=== PATIENT | male | born 1965 | race Caucasian/White ===

== ENCOUNTER 2017-08-31 12:07 | Outpatient (CLI) | payer OTHER | END 2017-08-31 12:08 | disposition critical access hospital (66) | LOC: EMS 12:07 | PROVIDERS: ATTEND Surgery | DX: R53.1 Weakness (principal) | CPT/HCPCS: A0425; A0427 ==

== ENCOUNTER 2017-08-31 12:27 | Inpatient (IN) | payer OTHER ==
[2017-08-31 13:27] LABS: BASOPHILS % (AUTO) 0.8 %; EOSINOPHILS % (AUTO) 0.2 %; HGB - HEMOGLOBIN 14.7 g/dL (14.0-18.0); LYMPHOCYTES # (AUTO) 1.7 10^3/uL (1.5-3.5); LYMPHOCYTES % (AUTO) 42.9 %; MEAN CORPUSCULAR HGB CONC 35.2 g/dL (32.0-36.0); MEAN CORPUSCULAR VOLUME 85.1 fL (80.0-94.0); MONOCYTES # (AUTO) 0.3 10^3/uL (0.0-1.0); MONOCYTES % (AUTO) 6.5 %; NEUTROPHILS # (AUTO) 1.9 10^3/uL (1.5-6.6); NEUTROPHILS % (AUTO) 49.6 %; PLT - PLATELET COUNT 227 10^3/uL (130-450); RED BLOOD COUNT 4.91 10^6/uL (4.70-6.10); RED CELL DISTRIBUTION WIDTH 13.1 % (12.0-15.0); WHITE BLOOD COUNT 3.9 x10^3/uL (4.8-10.8)
[2017-08-31 13:39] LABS: ALBUMIN 3.7 g/dL (3.2-5.5); BILIRUBIN,TOTAL 1.1 mg/dL (0.2-1.0); CALCIUM 9.2 mg/dL (8.5-10.3); CREATININE 0.7 mg/dL (0.6-1.2); TOTAL PROTEIN 7.3 g/dL (6.7-8.2)
--- NOTE | 2017-08-31 13:47 | ED Physician Documentation ---
PD HPI FOCAL NEURO - Stated complaint Stated Complaint: POSS STROKE - Chief complaint Chief Complaint: Neuro - History obtained from History obtained from: Patient, EMS - History of Present Illness Timing - onset: Enter time (1999), Last night Timing - duration: Hours (14) Timing - details: Abrupt onset, Still present Severity of deficit: Severe Weakness: Face, Arm, Hand, Leg, Foot, Right Associated symptoms: Headache. No: Seizure, Syncope, Fall, Head injury, Chest pain, Neck pain, Back pain Contributing factors: negative: Anticoagulated, Vascular dz Baseline status: positive: A&OX3, ambulatory, indep Similar symptoms before: Has not had sx before Recently seen: Not recently seen - Additional information Additional information: 52-year-old male was well this past week and at approximately 1999 last night developed acute right-sided Facial numbness and weakness followed by weakness of the right upper and lower extremity. He was not able to get up off of the floor and slipped on the floor. When he awoke in the morning he continued to have symptoms and it took him about 4 hours to get to his phone. Review of Systems Constitutional: denies: Fever, Chills, Myalgias Eyes: reports: Other (There is now some trouble with the vision). denies: Loss of vision Ears: denies: Ear pain Nose: denies: Congestion Throat: denies: Sore throat Respiratory: denies: Cough GI: denies: Abdominal Pain, Nausea, Vomiting : denies: Dysuria, Frequency Skin: denies: Rash Musculoskeletal: denies: Neck pain, Back pain, Extremity pain Neurologic: reports: Focal weakness, Numbness, Headache. denies: Generalized weakness, Head injury, LOC Psychiatric: denies: Depressed PD PAST MEDICAL HISTORY - Past Medical History Past Medical History: Yes Cardiovascular: CT Endocrine/Autoimmune: Type 2 diabetes Other Past Medical History: chewing tobacco. - Past Surgical History Past Surgical History: No - Present Medications Home Medications: Ambulatory Orders Medication Instructions Recorded Confirmed Clopidogrel [Plavix] 75 mg PO ONCE 08/31/17 08/31/17 metFORMIN [Glucophage] 500 mg PO ONCE 08/31/17 08/31/17 - Allergies Allergies/Adverse Reactions: Allergies Allergy/AdvReac Type Severity Reaction Status Date / Time No Known Drug Allergies Allergy Verified 08/31/17 12:32 - Social History Does the pt smoke?: No Smoking Status: Never smoker Does the pt drink ETOH?: No Does the pt have substance abuse?: No - Immunizations Immunizations are current?: Yes - POLST Patient has POLST: No PD ED PE NORMAL - Vitals Vital signs reviewed: Yes (normal ) - General General: Alert and oriented X 3, No acute distress, Well developed/nourished - HEENT HEENT: Atraumatic, PERRL, Other (The left eye does not move laterally. ) - Neck Neck: Supple, no meningeal sign, No bony TTP, No bruit - Cardiac Cardiac: RRR, No murmur - Respiratory Respiratory: No respiratory distress, Clear bilaterally - Abdomen Abdomen: Soft, Non tender - Back Back: No CVA TTP, No spinal TTP - Derm Derm: Normal color, Warm and dry, No rash - Extremities Extremities: No deformity, No edema - Neuro Neuro: No motor deficit, No sensory deficit Eye Opening: Spontaneous Motor: Obeys Commands Verbal: Oriented GCS Score: 15 - Psych Psych: Normal mood, Normal affect NIHSS - Time Time: 13:45 - Level of Consciousness Level of consciousness: (0) Alert, Keenly responsive LOC Questions: (0) Answers both Q's correct LOC Commands: (0) Performs both correctly - Gaze Best Gaze: (2) Forced deviation - Visual Visual: (1) Partial hemianopia - Facial Palsy Facial Palsy: (2) Partial paralysis - Motor Arms (both separate) Motor Arm (right): (4) No movement Motor Arm (left): (0) No drift - Motor Legs (both separate) Motor Leg (right): (4) No movement Motor Leg (left): (0) No drift - Limb Ataxia Limb Ataxia: (2) Present in 2 limbs - Sensory Sensory: (1) Kilr-ul-pqpiraso loss - Best Language Best Language: (0) No aphasia - Dysarthria Dysarthria: (1) [id number]-lgwqxlmn dysarthria - Extinction and Inattention (formally neg Extinction and inattention: (0) No abnormality - Total Score/Results Total Score/Result: 17 Results - Vitals Vitals: Vital Signs - 24 hr 08/31/17 08/31/17 08/31/17 12:28 13:33 14:42 Temperature 36.3 C L 36.5 C Heart Rate 69 73 77 Respiratory 16 16 18 Rate Blood Pressure 115/76 119/76 130/77 O2 Saturation 97 95 98 Oxygen O2 Source Room air - EKG (time done) 1240 Rate: Rate (enter#) (64) Rhythm: NSR Intervals: Prolonged ME, Wide QRS Ischemia: Q waves (extensive anterior and inferior) Compare to prior EKG: Old EKG unavailable Computer interpretation: Agree with computer - Labs Labs: Laboratory Tests 08/31/17 08/31/17 08/31/17 13:20 13:20 13:20 WBC 3.9 L RBC 4.91 Hgb 14.7 Hct 41.8 L MCV 85.1 MCH 30.0 MCHC 35.2 RDW 13.1 Plt Count 227 MPV 8.0 Neut # 1.9 Lymph # 1.7 Gladwin # 0.3 Eos # 0.0 Baso # 0.0 Absolute Nucleated RBC 0.01 Nucleated RBC % 0.2 Sodium 133 L Potassium 3.7 Chloride 98 L Carbon Dioxide 22 Anion Gap 13.0 BUN 11 Creatinine 0.7 Estimated GFR (MDRD) 118 Glucose 322 H Calcium 9.2 Total Bilirubin 1.1 H AST 17 ALT 21 Alkaline Phosphatase 76 Troponin I < 0.04 Total Protein 7.3 Albumin 3.7 Globulin 3.6 Albumin/Globulin Ratio 1.0 Lipase 34 Urine Color Urine Clarity Urine pH Ur Specific Millen Urine Protein Urine Glucose (UA) Urine Ketones Urine Occult Blood Urine Nitrite Urine Bilirubin Urine Urobilinogen Ur Leukocyte Esterase Ur Microscopic Review Urine Culture Comments Urine Opiates Screen Ur Oxycodone Screen Urine Methadone Screen Ur Propoxyphene Screen Ur Barbiturates Screen Ur Tricyclics Screen Ur Phencyclidine Scrn Ur Amphetamine Screen U Methamphetamines Scrn U Benzodiazepines Scrn Urine Cocaine Screen U Cannabinoids Screen 08/31/17 15:10 WBC RBC Hgb Hct MCV MCH MCHC RDW Plt Count MPV Neut # Lymph # Gladwin # Eos # Baso # Absolute Nucleated RBC Nucleated RBC % Sodium Potassium Chloride Carbon Dioxide Anion Gap BUN Creatinine Estimated GFR (MDRD) Glucose Calcium Total Bilirubin AST ALT Alkaline Phosphatase Troponin I Total Protein Albumin Globulin Albumin/Globulin Ratio Lipase Urine Color YELLOW Urine Clarity CLEAR Urine pH 5.5 Ur Specific Millen 1.020 Urine Protein NEGATIVE Urine Glucose (UA) 500 H Urine Ketones 40 H Urine Occult Blood NEGATIVE Urine Nitrite NEGATIVE Urine Bilirubin NEGATIVE Urine Urobilinogen 0.2 (NORMAL) Ur Leukocyte Esterase NEGATIVE Ur Microscopic Review NOT INDICATED Urine Culture Comments NOT INDICATED Urine Opiates Screen NEGATIVE Ur Oxycodone Screen NEGATIVE Urine Methadone Screen NEGATIVE Ur Propoxyphene Screen NEGATIVE Ur Barbiturates Screen NEGATIVE Ur Tricyclics Screen NEGATIVE Ur Phencyclidine Scrn NEGATIVE Ur Amphetamine Screen NEGATIVE U Methamphetamines Scrn NEGATIVE U Benzodiazepines Scrn NEGATIVE Urine Cocaine Screen NEGATIVE U Cannabinoids Screen NEGATIVE - Rads (name of study) CT angiogram neck Radiology: Prelim report reviewed (Impression: 1. Normal CTA of the neck. No significant vascular stenosis, atherosclerotic disease, or dissection.), EMP read indepedently, See rad report CT angiogram head Radiology: Prelim report reviewed (Impression: 1. Normal CTA of the head. No significant vascular stenosis or aneurysm.), EMP read indepedently, See rad report CT head without Radiology: Prelim report reviewed (Impression: No acute intracranial hemorrhage or mass-effect.), EMP read indepedently, See rad report Procedures - IVC sono (time) 1435 Bedside IVC sono: IVC measures (cm) (1.04), IVC collapsed c insp (cm) (complete) , Dehydration (est 1.5 liters down) PD MEDICAL DECISION MAKING - ED course Complexity details: reviewed old records, reviewed results, re-evaluated patient , considered differential, d/w patient ED course: 52 y/o male with dense right michael-paresis is well beyond the lytic window on arrival. He has a fixed deviated left eye and appears without cognative deficit. He does have some return of function to the hand and foot that is minimal but better than no movement. He does not have a large vessel occlusion. The neurologist at [address] is consulted for this young man with a devastating stroke and they would like to transfer him for ongoing stroke care but they do not have bed availability. They would like to reserve a bed for him and transfer him tomorrow for continued work up. Dr. Matthew at 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 We will not be able to get this study done over the weekend and will transfer for ongoing care in am. Dr. Doherty is the admitting physician here and will follow up with transfer tomorrow. Departure - Departure Disposition: ED Place in Observation Discharge Date/Time: 08/31/17 17:15
[2017-08-31] MEDS ORDERED: IOPAMIDOL-300 100 ML VIAL ONE (14:09)
[2017-08-31] MEDS ORDERED: IOPAMIDOL-300 100 ML VIAL IVP ONE ×2 (14:26)
--- NOTE | 2017-08-31 14:32 | CT Report ---
EXAM: CT HEAD EXAM DATE: 08/31/2017 02:06 PM. CLINICAL HISTORY: Stroke symptoms. COMPARISON: None. TECHNIQUE: Multiaxial CT images were obtained from the foramen magnum to the vertex. Reformats: Coron al. IV contrast: None. In accordance with CT protocol optimization, one or more of the following dose reduction techniques w ere utilized for this exam: automated exposure control, adjustment of mA and/or KV based on patient s ize, or use of iterative reconstructive technique. FINDINGS: Parenchyma: No intraparenchymal hemorrhage. No evidence of mass, midline shift, or CT findings of inf arction. Goncalves-white differentiation is distinct. Extraaxial Spaces: Normal for age. No subdural or epidural collections identified. Ventricles: Normal in size and position. Sinuses and Orbits: Imaged paranasal sinuses, orbits, and mastoids show no significant abnormality. Bones: No evidence of fracture or calvarial defect. Other: Right maxillary mucosal thickening. IMPRESSION: No acute intracranial hemorrhage or mass effect. [facility] Referring Provider Line: [phone] SITE ID: [id number]
--- NOTE | 2017-08-31 14:32 | CT Preliminary Report ---
Exam: CT HEAD W/O IMPRESSION: No acute intracranial hemorrhage or mass effect. [facility] SITE ID: [id number]
[2017-08-31] MEDS ORDERED: SODIUM CHLORIDE 0.9% 1,000 ML IV ONE (14:38)
--- NOTE | 2017-08-31 14:48 | CT Report ---
EXAM: CT ANGIOGRAM HEAD. CT SCAN OF THE HEAD WITHOUT AND WITH CONTRAST. EXAM DATE: 08/31/2017 02:27 PM CLINICAL HISTORY: 52-year-old man with right hemiparesis. COMPARISON: Noncontrast head CT done immediately before. TECHNIQUE: 1. CT Scan Head: Using a multidetector scanner, axial images were acquired from the foramen magnum to the skull vertex prior to and following contrast administration. 2. CT Angiogram: Using a multidetector scanner, high-resolution axial images were acquired from the s kull base through vertex following rapid infusion of intravenous contrast. Reformats: Multiplanar MIP reformats were reconstructed. Nascet criteria used for stenosis measurement. IV Contrast: 80 cc Isovue-300. In accordance with CT protocol optimization, one or more of the following dose reduction techniques w ere utilized for this exam: automated exposure control, adjustment of mA and/or KV based on patient s ize, or use of iterative reconstructive technique. FINDINGS: NONCONTRAST HEAD: Parenchyma: No evidence of hemorrhage. Goncalves-white differentiation appears intact. Parenchyma demonstr ates normal attenuation characteristics. Ventricles and Extra-axial Spaces: Ventricles are symmetric and normal in size for age. No extra-axia l hemorrhage or fluid collection. Orbits: Unremarkable. Sinuses: There is mucosal thickening with hyperdense secretions, consistent with inspissated secretio ns or fungal infection. Hyperostosis of the surrounding barker is consistent with chronic sinusitis. Extracranial Soft Tissues and Bones: Soft tissues are unremarkable. No fractures. CTA HEAD: RIGHT: Visualized Internal Carotid: Patent without significant stenosis or aneurysm. There is mild atheroscl erotic plaque along the siphon. Anterior Cerebral: Patent without significant stenosis or aneurysm. Middle Cerebral: Patent without significant stenosis or aneurysm. Posterior Cerebral: Patent without significant stenosis or aneurysm. Posterior Communicating: Not well seen. Visualized Vertebral: Patent without significant stenosis or dissection. LEFT: Visualized Internal Carotid: Patent without significant stenosis or aneurysm. There is mild atheroscl erotic plaque along the siphon. Anterior Cerebral: Patent without significant stenosis or aneurysm. Middle Cerebral: Patent without significant stenosis or aneurysm. Posterior Cerebral: Patent without significant stenosis or aneurysm. Posterior Communicating: Small but patent. Visualized Vertebral: Patent without significant stenosis or dissection. CENTRAL: Anterior Communicating: Patent. No aneurysm. Basilar: Patent without significant stenosis, dissection, or aneurysm. POSTCONTRAST HEAD: No abnormal enhancement. IMPRESSION: HEAD: 1. No acute intracranial abnormality. Specifically, no evidence of acute infarct, hemorrhage, or mass lesion. CTA of the head: 1. Normal CTA of the head. No significant vascular stenosis or aneurysm. [facility] Referring Provider Line: [phone] SITE ID: [id number]
--- NOTE | 2017-08-31 14:52 | CT Report ---
EXAM: CT ANGIOGRAM NECK EXAM DATE: 08/31/2017 02:27 PM. CLINICAL HISTORY: 52-year-old man with right-sided hemiparesis. COMPARISON: None. TECHNIQUE: Routine axial helical imaging was performed from the skull base through the aortic arch. I V Contrast: Yes. Reconstructions: Routine multiplanar 3D MIP reconstructions. Evaluation of arterial stenosis is based on a NASCET method of measurement. In accordance with CT protocol optimization, one or more of the following dose reduction techniques w ere utilized for this exam: automated exposure control, adjustment of mA and/or KV based on patient s ize, or use of iterative reconstructive technique. FINDINGS: Right Carotid: The common carotid, internal carotid, and external carotid arteries are widely patent. No dissection, significant atherosclerotic plaque, or calcification identified. Left Carotid: The common carotid, internal carotid, and external carotid arteries are widely patent. No dissection, significant atherosclerotic plaque, or calcification identified. Right Vertebral: Patent without significant stenosis or dissection. Left Vertebral: Patent without significant stenosis or dissection. Other: Limited evaluation of the neck soft tissues is unremarkable. Lung apices are clear. IMPRESSION: 1. Normal CTA of the neck. No significant vascular stenosis, atherosclerotic disease, or dissection. [facility] Referring Provider Line: [phone] SITE ID: [id number]
[2017-08-31] MEDS ORDERED: SODIUM CHLORIDE FLUSH 0.9% 10 ML SYRINGE IVP PRN (16:01)
[2017-08-31] MEDS ORDERED: PROCHLORPERAZINE 10 MG/2 ML VIAL IVP PRN (16:01)
[2017-08-31] MEDS ORDERED: MORPHINE 2 MG/ML SYRINGE IVP PRN (16:01)
[2017-08-31] MEDS ORDERED: ONDANSETRON 4 MG/2 ML VIAL IVP PRN (16:01)
[2017-08-31 16:22] LABS: MUDS CUTOFF CONCENTRATIONS CUTOFF CONC BELOW:
[2017-08-31 16:32] LABS: BILIRUBIN,URINE NEGATIVE (NEGATIVE); GLUCOSE, URINE (UA) 500 mg/dL (NEGATIVE); KETONES,URINE (UA) 40 mg/dL (NEGATIVE); LEUKOCYTE ESTERASE, URINE NEGATIVE (NEGATIVE); NITRITE,URINE NEGATIVE (NEGATIVE); OCCULT BLOOD,URINE NEGATIVE (NEGATIVE); PH,URINE 5.5 PH (5.0-7.5); PROTEIN,URINE NEGATIVE (NEGATIVE); UROBILINOGEN,URINE 0.2 (NORMAL) E.U./dL (NORMAL)
[2017-08-31 16:34] LABS: CLARITY,URINE CLEAR (CLEAR)
[2017-08-31 16:45] LABS: AMPHETAMINE SCREEN,URINE NEGATIVE (NEGATIVE); BENZODIAZEPINES SCREEN, URINE NEGATIVE (NEGATIVE); COCAINE SCREEN URINE NEGATIVE (NEGATIVE); METHADONE SCREEN, URINE NEGATIVE (NEGATIVE); METHAMPHETAMINES SCREEN, URINE NEGATIVE (NEGATIVE); OPIATE SCREEN, URINE NEGATIVE (NEGATIVE); OXYCODONE SCREEN, URINE NEGATIVE (NEGATIVE); PROPOXYPHENE SCREEN, URINE NEGATIVE (NEGATIVE); TRICYCLIC ANTIDEPRESSANT,URINE NEGATIVE (NEGATIVE)
[2017-08-31] MEDS ORDERED: DEXTROSE 5%-0.9% NACL 1,000 ML IV SCH (18:00)
[2017-08-31] MEDS: ASPIRIN 325 MG TABLET PO SCH (18:04)
[2017-08-31] MEDS: INSULIN REGULAR HUMAN 100 UNIT/1 ML 10 ML MDV SUBQ SCH (18:21)
--- NOTE | 2017-08-31 18:38 | HISTORY & PHYSICAL EXAMINATION ---
Chief Complaint - Chief Complaint Chief Complaint: Right-sided paralysis History of Present Illness - Admitted From Admitted From:: Emergency department - History Obtained From Records Reviewed: Yes History obtained from: Patient - History of Present Illness HPI Comment/Other: Patient is a 52-year-old gentleman with a medical history significant for a ID in 2011 status post 3 stents, diabetes, hyperlipidemia, hypertension and history of tobacco abuse who presented to the emergency department with right- sided paralysis. The patient states he was in his normal state of health until 8 PM last night when he began to feel his face going numb and then felt his right arm and leg go numb. The patient states that he fell to the floor and then could not get up and was having a lot of difficulty moving. He saw his phone on the table and states that it took him 11 hours to get to his phone. He states that once he got his phone he had lost feeling and had difficulty dialing the numbers. The patient states that it took him another 4 hours before he was able to call 911. The patient states that in total it was about 16 hours before he was able to get to the emergency department. The patient states that he was awake and did not lose consciousness through any of this. The patient also states that he had a right facial droop and could not move his left eye all the way to the left side. The patient otherwise denies any headaches, blurred vision, runny nose, sore throat, nasal congestion, neck pain, fevers, chills, chest pain, shortness of air, orthopnea, PND, increased lower extremity swelling, abdominal pain, nausea , vomiting, diarrhea, constipation, urinary urgency, urinary frequency, dysuria , muscle aches, joint pain, joint swelling, back pain, neck stiffness, recent unintentional weight loss, night sweats, or any changes in his appetite. On presentation to the emergency department the patient was afebrile and vital signs were within normal limits. The patient had obvious right-sided paralysis with a right facial droop and gaze deviation to the right. The patient underwent routine lab work which did show a slight hyponatremia and an elevated glucose of 322 otherwise his troponin was negative and other electrolytes were within normal limits. The patient's urine analysis was negative for infection and his U tox was negative. The patient underwent a CT of his head which was negative for any acute intracranial hemorrhage or mass-effect. The patient also underwent a CT angiogram of his head and neck which was normal with no significant vascular stenosis or aneurysm of the head and neck. The emergency room physician spoke with neurology at [facility] who felt that the patient likely had a brainstem stroke given his clinical picture. They asked that we transfer the patient to [facility] but currently they did not have beds available therefore the patient was admitted to [facility] until a bed is available at [facility]. History - Past Medical History Cardiovascular: reports: Hypertension, High cholesterol, Coronary artery disease , ID Endocrine/Autoimmune: reports: Type 2 diabetes MRSA Hx?: No Other Past Medical History: chewing tobacco. - Family & Social History Family History: Mother: Alive and Well, Father: Alive and Well, Sister: Alive and Well, Brother: Alive and Well Living arrangement: At home Living Situation: Alone Social History Notes: Patient is originally from [place] but has been living on [facility] since [address]. The patient lives alone in [place]. He is and his lives in [place]. He has 4 children 2 daughters and 2 sons. 1 of his daughters is getting in November. None of his children live in [facility]. The patient has a very good friend named Ange who also lives in [place] and works with the patient. The patient works in [employer] and works on the [employer]. The patient is a former smoker he smoked half a pack a day for about 20 years and quit 13 years ago. The patient was also previously a heavy drinker but now rarely drinks and he denies any illicit drug use. - POLST Patient has POLST: No POLST Status: Full Code Meds/Allgy - Home Medications Home Medications: Ambulatory Orders Medication Instructions Recorded Confirmed Clopidogrel [Plavix] 75 mg PO ONCE 08/31/17 08/31/17 metFORMIN [Glucophage] 500 mg PO ONCE 08/31/17 08/31/17 - Allergies Allergies/Adverse Reactions: Allergies Allergy/AdvReac Type Severity Reaction Status Date / Time No Known Drug Allergies Allergy Verified 08/31/17 12:32 Review of Systems - Other Findings Other Findings: A comprehensive review of systems was performed the pertinent positives and negatives are stated above in the HPI and the remainder of the review of systems is negative. Exam - Vital Signs Reviewed Vital Signs: Yes Vital Signs: Vital Signs x48h Temp Resp BP Pulse Ox 08/31/17 18:05 36.8 C 17 139/74 H 95 - Physical Exam General Appearance: positive: Moderate distress (Patient has obvious right- sided paralysis with right facial droop and slurred speech.) Eyes Bilateral: positive: Normal inspection, PERRL, No lid inflammation, Conjunctivae nml, No scleral icterus, Other (Patient can not move his left eye completely to the left side.) ENT: positive: ENT inspection nml, Pharynx nml, No signs of dehydration. negative: Purulent nasal drainage, Pharyngeal erythema, Oral lesions Neck: positive: Nml inspection, Thyroid nml, No JVD, Trachea midline, Brudzinski 's sign. negative: Thyromegaly, Lymphadenopathy (R), Lymphadenopathy (L), Stiff neck, Carotid bruit, Tracheal deviation Respiratory: positive: Chest non-tender, No respiratory distress, Breath sounds nml. negative: Wheezes, Rales, Rhonchi Cardiovascular: positive: Regular rate & rhythm, No murmur, No gallop Peripheral Pulses: positive: 2+ Back: positive: Nml inspection. negative: CVA tenderness (R), CVA tenderness (L ) Skin: positive: Color nml, No rash, Warm, Dry. negative: Cyanosis, Pallor Extremities: positive: Non-tender, Nml appearance, No pedal edema Neurologic/Psychiatric: positive: Oriented x3, Weakness (Right hemiparesis), Sensory loss (Sensory loss on the right side), Facial droop (Right facial droop) , Slurred/abnml speech (Slurred speech), Other (Patient has paresis of his left extraocular muscle as he is unable to move his left eye laterally) Conclusion/Plan - Problem List (1) Stroke Conclusion/Plan: Patient is likely had a brainstem stroke as he presents with right hemiparesis, right facial droop, slurred speech and forced deviation of the left eye to the right. Patient's symptoms started 16 hours prior to arrival. Patient is not a candidate for TPA. Patient's CT head, CT angios of the head and neck were all negative. We spoke with neurology from [facility] who would like the patient to be transferred to them but they do not have beds available at this time. They would like us to try again tomorrow. Plan: Aspirin, Lipitor, Plavix Swallow study Telemetry monitoring Echocardiogram MRI Permissive hypertension Transfer to [facility] once bed is available PT/OT/speech therapy as soon as it is available Patient will need inpatient stroke rehab (2) Diabetes Conclusion/Plan: Patient has history of diabetes and on presentation had elevated blood glucose of 322. Patient is only on metformin at home. Plan: Patient will be placed on sliding scale insulin Patient be placed on diabetic diet once he passes swallow study We will monitor glucose closely Check A1c Qualifiers: Diabetes mellitus type: type 2 (3) Hypertension Conclusion/Plan: Patient's blood pressure is normal on presentation likely secondary to being so many hours outside of the initial stroke. Patient's antihypertensives will be held and patient will be given IV fluids for the first 24-48 hours after stroke. We will monitor patient's blood pressure Qualifiers: Hypertension type: essential hypertension Qualified Code(s): I10 - Essential (primary) hypertension (4) Hyperlipidemia Conclusion/Plan: Patient will be placed on statin We will check lipid profile. (5) History of coronary artery disease Conclusion/Plan: Patient has a history of coronary artery disease with 3 stents in the past. It appears that he is on Plavix at home but does not appear to be on beta-gerri or statin. Patient will be placed on statin as he has now had a stroke We will hold any antihypertensives given recent stroke. - Lab Results Lab results reviewed: Yes Fish Bones: 08/31/17 13:20 08/31/17 13:20 Other Lab Results: Laboratory Results WBC 3.9 x10^3/uL (4.8-10.8) L 08/31/17 13:20 RBC 4.91 10^6/uL (4.70-6.10) 08/31/17 13:20 Hgb 14.7 g/dL (14.0-18.0) 08/31/17 13:20 Hct 41.8 % (42.0-52.0) L 08/31/17 13:20 MCV 85.1 fL (80.0-94.0) 08/31/17 13:20 MCH 30.0 pg (27.0-31.0) 08/31/17 13:20 MCHC 35.2 g/dL (32.0-36.0) 08/31/17 13:20 RDW 13.1 % (12.0-15.0) 08/31/17 13:20 Plt Count 227 10^3/uL (130-450) 08/31/17 13:20 MPV 8.0 fL (7.4-11.4) 08/31/17 13:20 Neut # 1.9 10^3/uL (1.5-6.6) 08/31/17 13:20 Lymph # 1.7 10^3/uL (1.5-3.5) 08/31/17 13:20 [place] # 0.3 10^3/uL (0.0-1.0) 08/31/17 13:20 Eos # 0.0 10^3/uL (0.0-0.7) 08/31/17 13:20 Baso # 0.0 10^3/uL (0.0-0.1) 08/31/17 13:20 Absolute Nucleated RBC 0.01 x10^3/uL 08/31/17 13:20 Nucleated RBC % 0.2 /100WBC 08/31/17 13:20 Sodium 133 mmol/L (135-145) L 08/31/17 13:20 Potassium 3.7 mmol/L (3.5-5.0) 08/31/17 13:20 Chloride 98 mmol/L (101-111) L 08/31/17 13:20 Carbon Dioxide 22 mmol/L (21-32) 08/31/17 13:20 Anion Gap 13.0 (6-13) 08/31/17 13:20 BUN 11 mg/dL (6-20) 08/31/17 13:20 Creatinine 0.7 mg/dL (0.6-1.2) 08/31/17 13:20 Estimated GFR (MDRD) 118 (>89) 08/31/17 13:20 Glucose 322 mg/dL (70-100) H 08/31/17 13:20 Calcium 9.2 mg/dL (8.5-10.3) 08/31/17 13:20 Total Bilirubin 1.1 mg/dL (0.2-1.0) H 08/31/17 13:20 AST 17 IU/L (10-42) 08/31/17 13:20 ALT 21 IU/L (10-60) 08/31/17 13:20 Alkaline Phosphatase 76 IU/L (42-121) 08/31/17 13:20 Troponin I < 0.04 ng/mL (<0.49) 08/31/17 13:20 Total Protein 7.3 g/dL (6.7-8.2) 08/31/17 13:20 Albumin 3.7 g/dL (3.2-5.5) 08/31/17 13:20 Globulin 3.6 g/dL (2.1-4.2) 08/31/17 13:20 Albumin/Globulin Ratio 1.0 (1.0-2.2) 08/31/17 13:20 Lipase 34 U/L (22-51) 08/31/17 13:20 Urine Color YELLOW 08/31/17 15:10 Urine Clarity CLEAR (CLEAR) 08/31/17 15:10 Urine pH 5.5 PH (5.0-7.5) 08/31/17 15:10 Ur Specific [place] 1.020 (1.002-1.030) 08/31/17 15:10 Urine Protein NEGATIVE mg/dL (NEGATIVE) 08/31/17 15:10 Urine Glucose (UA) 500 mg/dL (NEGATIVE) H 08/31/17 15:10 Urine Ketones 40 mg/dL (NEGATIVE) H 08/31/17 15:10 Urine Occult Blood NEGATIVE (NEGATIVE) 08/31/17 15:10 Urine Nitrite NEGATIVE (NEGATIVE) 08/31/17 15:10 Urine Bilirubin NEGATIVE (NEGATIVE) 08/31/17 15:10 Urine Urobilinogen 0.2 (NORMAL) E.U./dL (NORMAL) 08/31/17 15:10 Ur Leukocyte Esterase NEGATIVE (NEGATIVE) 08/31/17 15:10 Ur Microscopic Review NOT INDICATED 08/31/17 15:10 Urine Culture Comments NOT INDICATED 08/31/17 15:10 Urine Opiates Screen NEGATIVE (NEGATIVE) 08/31/17 15:10 Ur Oxycodone Screen NEGATIVE (NEGATIVE) 08/31/17 15:10 Urine Methadone Screen NEGATIVE (NEGATIVE) 08/31/17 15:10 Ur Propoxyphene Screen NEGATIVE (NEGATIVE) 08/31/17 15:10 Ur Barbiturates Screen NEGATIVE (NEGATIVE) 08/31/17 15:10 Ur Tricyclics Screen NEGATIVE (NEGATIVE) 08/31/17 15:10 Ur Phencyclidine Scrn NEGATIVE (NEGATIVE) 08/31/17 15:10 Ur Amphetamine Screen NEGATIVE (NEGATIVE) 08/31/17 15:10 U Methamphetamines Scrn NEGATIVE (NEGATIVE) 08/31/17 15:10 U Benzodiazepines Scrn NEGATIVE (NEGATIVE) 08/31/17 15:10 Urine Cocaine Screen NEGATIVE (NEGATIVE) 08/31/17 15:10 U Cannabinoids Screen NEGATIVE (NEGATIVE) 08/31/17 15:10 - Diagnostic Imaging Results Diagnostic Imaging Results: positive: Final report reviewed Diagnostic Imaging Results Comments: CT head Impression: No acute intracranial hemorrhage or mass-effect CT angiogram head Impression: 1. Normal CTA of the head. No significant vascular stenosis or aneurysm CT angiogram neck Impression: 1. Normal CT of the neck. No significant vascular stenosis, atherosclerotic disease, or dissection. - EKG Results EKG Interpreted Independently: Yes EKG Findings: No atrial fibrillation Core Measures - Anticipated LOS I expect patient to be DC'd or transferred within 96 hours.: Yes - DVT/VTE - Prophylaxis VTE/DVT Device ordered at admit?: Yes
--- NOTE | 2017-08-31 19:31 | MRI Report ---
EXAM: MRI BRAIN WITHOUT CONTRAST EXAM DATE: 08/31/2017 06:09 PM. CLINICAL HISTORY: Right hemiparesis and facial droop, dense stroke. COMPARISON: CTA head 08/31/2017 TECHNIQUE: Multiplanar, multisequence T1-weighted and fluid-sensitive MR sequences of the brain were performed. Sequences optimized for routine evaluation. Other: None. IV Contrast: None. FINDINGS: Brain Volume: Normal for age. Parenchyma/Dura: There is an 18 x 7 mm area of restricted diffusion and associated T2 hyperintense si gnal abnormality within the left paramedian nabil (series 505 image 64), consistent with an acute infa rct, less than one week old. No evidence of hemorrhagic transformation. No parenchymal microhemorrhag es. No mass or hemorrhage. No significant white matter disease. Ventricles/Cisterns: No hydrocephalus. No abnormal extra-axial fluid collection or hemorrhage. Orbits: Symmetric and unremarkable. Sella [place]: The pituitary gland, cavernous sinuses, suprasellar cistern and optic chiasm are unrem arkable. IAC: Symmetric and unremarkable. Vasculature: Normal signal flow void is seen in the major arterial structures at the skull base. Sinuses: Mucous retention cysts/polyps within right maxillary sinus with extensive mucosal thickening . The remaining paranasal sinuses are clear. Bones: No focal pathologic appearing marrow signal changes. Other: None. IMPRESSION: 1. An 18 x 7 mm area of restricted diffusion and associated T2 hyperintense signal abnormality within the left paramedian nabil (series 505 image 64), consistent with an acute infarct, less than one week old. No evidence of hemorrhagic transformation. 2. No evidence of intracranial mass effect, midline shift, or hydrocephalus. No significant white mat ter disease burden. The ordering provider was paged at the time of this dictation. [facility] Referring Provider Line: [phone] SITE ID: [id number]
[2017-08-31] MEDS: FAMOTIDINE 20 MG/50 ML 50 ML IV SCH (20:48)
[2017-08-31] MEDS: CLOPIDOGREL 75 MG TABLET PO SCH (20:48)
[2017-08-31] MEDS ORDERED: ATORVASTATIN 40 MG TABLET PO SCH (21:00)
[2017-08-31] MEDS: SODIUM CHLORIDE FLUSH 0.9% 10 ML SYRINGE IVP SCH (21:57)
[2017-09-01] MEDS: INSULIN REGULAR HUMAN 100 UNIT/1 ML 10 ML MDV SUBQ SCH ×3 (00:11→12:10)
[2017-09-01] MEDS ORDERED: NS W/20 MEQ KCL 1,000 ML IV SCH (02:00)
[2017-09-01 06:52] LABS: BASOPHILS % (AUTO) 0.4 %; EOSINOPHILS # (AUTO) 0.1 10^3/uL (0.0-0.7); EOSINOPHILS % (AUTO) 1.1 %; HGB - HEMOGLOBIN 13.3 g/dL (14.0-18.0); LYMPHOCYTES # (AUTO) 4.3 10^3/uL (1.5-3.5); LYMPHOCYTES % (AUTO) 77.7 %; MEAN CORPUSCULAR HEMOGLOBIN 29.6 pg (27.0-31.0); MEAN CORPUSCULAR HGB CONC 34.3 g/dL (32.0-36.0); MEAN CORPUSCULAR VOLUME 86.3 fL (80.0-94.0); MEAN PLATELET VOLUME 7.8 fL (7.4-11.4); MONOCYTES # (AUTO) 0.4 10^3/uL (0.0-1.0); MONOCYTES % (AUTO) 6.7 %; NEUTROPHILS # (AUTO) 0.8 10^3/uL (1.5-6.6); NEUTROPHILS % (AUTO) 14.1 %; PLT - PLATELET COUNT 219 10^3/uL (130-450); RED BLOOD COUNT 4.48 10^6/uL (4.70-6.10); RED CELL DISTRIBUTION WIDTH 13.1 % (12.0-15.0); WHITE BLOOD COUNT 5.6 x10^3/uL (4.8-10.8)
[2017-09-01 07:04] LABS: ALBUMIN 3.2 g/dL (3.2-5.5); ALBUMIN/GLOBULIN RATIO 1.1 (1.0-2.2); BILIRUBIN,TOTAL 0.6 mg/dL (0.2-1.0); CALCIUM 8.5 mg/dL (8.5-10.3); CREATININE 0.6 mg/dL (0.6-1.2); PT - PROTHROMBIN TIME 11.3 secs (9.9-12.6); TOTAL PROTEIN 6.2 g/dL (6.7-8.2)
[2017-09-01 07:24] LABS: HB2 TOTAL 14.2 g/dL; HEMOGLOBIN A1C 1.68 g/dL
[2017-09-01 07:29] LABS: PLATELET ESTIMATE, MANUAL NORMAL (130-450,000) (NORMAL); PLATELET MORPHOLOGY NORMAL APPEARANCE (NORMAL); RBC MORPHOLOGY (MULTIPLE) NORMAL APPEARANCE (NORMAL)
[2017-09-01 07:34] LABS: DIFFERENTIAL COMMENT MANUAL=AUTO DIFF
[2017-09-01] MEDS: SODIUM CHLORIDE FLUSH 0.9% 10 ML SYRINGE IVP SCH ×2 (08:18→12:12)
[2017-09-01] MEDS ORDERED: POLYETHYLENE GLYCOL 3350 17 GM PACKET PO SCH (09:00)
[2017-09-01] MEDS: CLOPIDOGREL 75 MG TABLET PO SCH (10:09)
[2017-09-01] MEDS: ASPIRIN 325 MG TABLET PO SCH (10:09)
[2017-09-01] MEDS: FAMOTIDINE 20 MG/50 ML 50 ML IV SCH (10:09)
[2017-09-01 10:33] LABS: HGB - HEMOGLOBIN 13.6 g/dL (14.0-18.0); MEAN CORPUSCULAR HEMOGLOBIN 30.3 pg (27.0-31.0); MEAN CORPUSCULAR HGB CONC 35.5 g/dL (32.0-36.0); MEAN CORPUSCULAR VOLUME 85.3 fL (80.0-94.0); MEAN PLATELET VOLUME 7.6 fL (7.4-11.4); RED BLOOD COUNT 4.5 10^6/uL (4.70-6.10); WHITE BLOOD COUNT 5.7 x10^3/uL (4.8-10.8)
[2017-09-01] MEDS ORDERED: HEPARIN 25,000 UNITS/500 ML NS 25,000 UNIT/500 ML BAG IV SCH (11:00)
[2017-09-01] MEDS ORDERED: INSULIN GLARGINE 300 UNIT/3 ML PEN SUBQ SCH (11:00)
--- NOTE | 2017-09-01 13:17 | Discharge Plan ---
Discharge Plan Disposition: 02 Transfer Acute Care Hosp Condition: Poor Diet: Diabetic (Dysphagia, honey thick) Activity Restrictions: Bedrest Shower Restrictions: No Driving Restrictions: No Additional Instructions or Follow Up instructions: You are being transferred to [facility] at [place] for higher level of care after having suffered a left pontine stroke which has left you with right-sided paralysis and right facial droop. You were found to have a clot in your left ventricle of your heart and will also need to be seen by cardiology. No Smoking: If you smoke, Please STOP! Call for help.
[2017-09-01 13:31] VITALS: BP 118/71
--- NOTE | 2017-09-01 13:56 | DISCHARGE SUMMARY ---
Discharge Summary Admit Date: 08/31/17 Discharge Date: 09/01/17 (Accepting physician: Dr Vernon Delarosa) Discharging Provider: Blu Doherty MD Primary Care Provider: Krysta Koehler MD Code Status: Attempt Resuscitation Condition at Discharge: Poor Discharge Disposition: 02 Transfer Acute Care Hosp Discharge Facility Name: [facility] - Accepting physician: Dr Junior - DIAGNOSES Admission Diagnoses: 1. Stroke 2. Diabetes 3. Hypertension 4. Hyperlipidemia 5. History of coronary artery disease Discharge Diagnoses with Status of Each Condition: 1. Left paramedian nabil stroke: Guarded 2. Left ventricular thrombus: Guarded 3. Systolic heart failure: Guarded 4. Diabetes: Stable 5. History of coronary disease: Guarded 6. Hypertension: Stable 7. Hyperlipidemia: Stable - HPI History of Present Illness: Patient is a 52-year-old gentleman with a medical history significant for a AL in 2010 status post 3 stents, diabetes, hyperlipidemia, hypertension and history of tobacco abuse who presented to the emergency department with right- sided paralysis. The patient states he was in his normal state of health until 8 PM last night when he began to feel his face going numb and then felt his right arm and leg go numb. The patient states that he fell to the floor and then could not get up and was having a lot of difficulty moving. He saw his phone on the table and states that it took him 11 hours to get to his phone. He states that once he got his phone he had lost feeling and had difficulty dialing the numbers. The patient states that it took him another 4 hours before he was able to call 911. The patient states that in total it was about 16 hours before he was able to get to the emergency department. The patient states that he was awake and did not lose consciousness through any of this. The patient also states that he had a right facial droop and could not move his left eye all the way to the left side. The patient otherwise denies any headaches, blurred vision, runny nose, sore throat, nasal congestion, neck pain, fevers, chills, chest pain, shortness of air, orthopnea, PND, increased lower extremity swelling, abdominal pain, nausea , vomiting, diarrhea, constipation, urinary urgency, urinary frequency, dysuria , muscle aches, joint pain, joint swelling, back pain, neck stiffness, recent unintentional weight loss, night sweats, or any changes in his appetite. On presentation to the emergency department the patient was afebrile and vital signs were within normal limits. The patient had obvious right-sided paralysis with a right facial droop and gaze deviation to the right. The patient underwent routine lab work which did show a slight hyponatremia and an elevated glucose of 322 otherwise his troponin was negative and other electrolytes were within normal limits. The patient's urine analysis was negative for infection and his U tox was negative. The patient underwent a CT of his head which was negative for any acute intracranial hemorrhage or mass-effect. The patient also underwent a CT angiogram of his head and neck which was normal with no significant vascular stenosis or aneurysm of the head and neck. The emergency room physician spoke with neurology at [facility] who felt that the patient likely had a brainstem stroke given his clinical picture. They asked that we transfer the patient to [facility] but currently they did not have beds available therefore the patient was admitted to [facility] until a bed is available at [facility]. - HOSPITAL COURSE Hospital Course: Patient was admitted to [facility] with right hemiparesis, right facial droop and gaze deviation. The patient was found to have a 18 x 7 mm area of restricted diffusion and associated T2 hyperintense signal abnormality within the left paramedian nabil consistent with an acute infarct. The patient did not have any hemorrhagic transformation. Patient's EKG showed a normal sinus rhythm and he did not have any arrhythmias on telemetry. The patient's echocardiogram did reveal a 0.6 cm x 1.5 cm thrombus located in the apex of the left ventricle. He also had a reduced ejection fraction of 35-40% with impaired relaxation consistent with grade 1 diastolic dysfunction. The patient had regional wall motion abnormalities the entire apex was akinetic. 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 Given these findings it was felt that the patient needed a higher level of care with specialists such as neurology and cardiology which were not available [facility]. After speaking with Dr. Junior at [facility] the patient was excepted in transfer. Prior to transfer the patient was started on a heparin drip for his cardiac thrombus as the neurologist from [facility] cleared the patient for heparin. The patient was also given aspirin, Plavix and Lipitor. Prior to discharge the patient was seen by physical therapy and had started regaining some strength in the right upper and lower extremity. The patient failed a bedside swallow with thin liquids but did tolerate honey thickened liquids and a dysphagia type diet. The patient was transferred to [facility] in guarded condition. - ALLERGIES Allergies/Adverse Reactions: Allergies Allergy/AdvReac Type Severity Reaction Status Date / Time No Known Drug Allergies Allergy Verified 08/31/17 12:32 - MEDICATIONS Home Medications: Ambulatory Orders Medication Instructions Recorded Confirmed Clopidogrel [Plavix] 75 mg PO ONCE 08/31/17 08/31/17 metFORMIN [Glucophage] 500 mg PO ONCE 08/31/17 08/31/17 Aspirin [Silvina] 325 mg PO DAILYWM tablet 09/01/17 Atorvastatin [Lipitor] 80 mg PO QPM tablet 09/01/17 Clopidogrel [Plavix] 75 mg PO DAILY tablet 09/01/17 Insulin Glargine [Lantus Solostar] 15 unit SUBQ DAILY pen 09/01/17 Insulin Regular Human [NovoLIN R] 1 - 5 unit SUBQ Q6HR ml 09/01/17 - PHYSICAL EXAM AT DISCHARGE General Appearance: positive: Alert, Other (Right sided paresis with right facial droop) Eyes Bilateral: positive: Normal inspection, PERRL, No lid inflammation, Conjunctivae nml, No scleral icterus, Other (Patient unable to move left eye laterally beyond midpoint) ENT: positive: ENT inspection nml, Pharynx nml, No signs of dehydration. negative: Purulent nasal drainage, Pharyngeal erythema, Oral lesions Neck: positive: Nml inspection, Thyroid nml, No JVD, Trachea midline. negative : Lymphadenopathy (R), Lymphadenopathy (L), Stiff neck, Carotid bruit, Tracheal deviation Respiratory: positive: Chest non-tender, No respiratory distress, Breath sounds nml. negative: Wheezes, Rales, Rhonchi Cardiovascular: positive: Regular rate & rhythm, No murmur, No gallop Peripheral Pulses: positive: 2+ Abdomen: positive: Non-tender, No organomegaly, Nml bowel sounds, No distention. negative: Guarding, Rebound, Hepatomegaly Back: positive: Nml inspection. negative: CVA tenderness (R), CVA tenderness (L ) Skin: positive: Color nml, No rash, Warm. negative: Cyanosis, Pallor Extremities: positive: Non-tender, Nml appearance, No pedal edema Neurologic/Psychiatric: positive: Oriented x3, Weakness (Right hemiparesis), Sensory loss (Sensory loss on the right), Facial droop (Right facial droop), Slurred/abnml speech (Slurred speech), Other (Left eye only laterally past the midpoint) - LABS Result Diagrams: 09/01/17 10:24 09/01/17 06:14 Other Lab Results: Laboratory Results WBC 5.7 x10^3/uL (4.8-10.8) 09/01/17 10:24 RBC 4.50 10^6/uL (4.70-6.10) L 09/01/17 10:24 Hgb 13.6 g/dL (14.0-18.0) L 09/01/17 10:24 Hct 38.4 % (42.0-52.0) L 09/01/17 10:24 MCV 85.3 fL (80.0-94.0) 09/01/17 10:24 MCH 30.3 pg (27.0-31.0) 09/01/17 10:24 MCHC 35.5 g/dL (32.0-36.0) 09/01/17 10:24 RDW 13.0 % (12.0-15.0) 09/01/17 10:24 Plt Count 203 10^3/uL (130-450) 09/01/17 10:24 MPV 7.6 fL (7.4-11.4) 09/01/17 10:24 Neut # 0.8 10^3/uL (1.5-6.6) L 09/01/17 06:14 Lymph # 4.3 10^3/uL (1.5-3.5) H 09/01/17 06:14 Mcclain # 0.4 10^3/uL (0.0-1.0) 09/01/17 06:14 Eos # 0.1 10^3/uL (0.0-0.7) 09/01/17 06:14 Baso # 0.0 10^3/uL (0.0-0.1) 09/01/17 06:14 Absolute Nucleated RBC 0.00 x10^3/uL 09/01/17 06:14 Band Neuts % (Manual) Not Reportable 09/01/17 06:14 Abnorm Lymph % (Manual) Not Reportable 09/01/17 06:14 Nucleated RBC % 0.1 /100WBC 09/01/17 06:14 Neutrophils # (Manual) Not Reportable 09/01/17 06:14 Lymphocytes # (Manual) Not Reportable 09/01/17 06:14 Monocytes # (Manual) Not Reportable 09/01/17 06:14 Eosinophils # (Manual) Not Reportable 09/01/17 06:14 Basophils # (Manual) Not Reportable 09/01/17 06:14 Differential Comment MANUAL=AUTO DIFF 09/01/17 06:14 WBC Morphology NORMAL APPEARANCE (NORMAL) 09/01/17 06:14 Platelet Estimate NORMAL (130-450,000) (NORMAL) 09/01/17 06:14 Platelet Morphology NORMAL APPEARANCE (NORMAL) 09/01/17 06:14 RBC Morph Micro Appear NORMAL APPEARANCE (NORMAL) 09/01/17 06:14 PT 11.3 secs (9.9-12.6) 09/01/17 06:14 INR 1.0 (0.8-1.2) 09/01/17 06:14 Anti-Xa Level 0.1 U/mL (-0.7) 09/01/17 10:24 Sodium 136 mmol/L (135-145) 09/01/17 06:14 Potassium 3.3 mmol/L (3.5-5.0) L 09/01/17 06:14 Chloride 104 mmol/L (101-111) 09/01/17 06:14 Carbon Dioxide 25 mmol/L (21-32) 09/01/17 06:14 Anion Gap 7.0 (6-13) 09/01/17 06:14 BUN 9 mg/dL (6-20) 09/01/17 06:14 Creatinine 0.6 mg/dL (0.6-1.2) 09/01/17 06:14 Estimated GFR (MDRD) 141 (>89) 09/01/17 06:14 Glucose 222 mg/dL (70-100) H 09/01/17 06:14 POC Whole Bld Glucose 312 mg/dL (70 - 100) H 09/01/17 11:22 Glycated Hemoglobin 13.0 % (4.6-6.2) H 09/01/17 06:14 Estim Average Glucose 326 (70-100) H 09/01/17 06:14 Calcium 8.5 mg/dL (8.5-10.3) 09/01/17 06:14 Total Bilirubin 0.6 mg/dL (0.2-1.0) 09/01/17 06:14 AST 14 IU/L (10-42) 09/01/17 06:14 ALT 18 IU/L (10-60) 09/01/17 06:14 Alkaline Phosphatase 60 IU/L (42-121) 09/01/17 06:14 Troponin I < 0.04 ng/mL (<0.49) 08/31/17 13:20 Total Protein 6.2 g/dL (6.7-8.2) L 09/01/17 06:14 Albumin 3.2 g/dL (3.2-5.5) 09/01/17 06:14 Globulin 3.0 g/dL (2.1-4.2) 09/01/17 06:14 Albumin/Globulin Ratio 1.1 (1.0-2.2) 09/01/17 06:14 Lipase 34 U/L (22-51) 08/31/17 13:20 Urine Color YELLOW 08/31/17 15:10 Urine Clarity CLEAR (CLEAR) 08/31/17 15:10 Urine pH 5.5 PH (5.0-7.5) 08/31/17 15:10 Ur Specific [place] 1.020 (1.002-1.030) 08/31/17 15:10 Urine Protein NEGATIVE mg/dL (NEGATIVE) 08/31/17 15:10 Urine Glucose (UA) 500 mg/dL (NEGATIVE) H 08/31/17 15:10 Urine Ketones 40 mg/dL (NEGATIVE) H 08/31/17 15:10 Urine Occult Blood NEGATIVE (NEGATIVE) 08/31/17 15:10 Urine Nitrite NEGATIVE (NEGATIVE) 08/31/17 15:10 Urine Bilirubin NEGATIVE (NEGATIVE) 08/31/17 15:10 Urine Urobilinogen 0.2 (NORMAL) E.U./dL (NORMAL) 08/31/17 15:10 Ur Leukocyte Esterase NEGATIVE (NEGATIVE) 08/31/17 15:10 Ur Microscopic Review NOT INDICATED 08/31/17 15:10 Urine Culture Comments NOT INDICATED 08/31/17 15:10 Urine Opiates Screen NEGATIVE (NEGATIVE) 08/31/17 15:10 Ur Oxycodone Screen NEGATIVE (NEGATIVE) 08/31/17 15:10 Urine Methadone Screen NEGATIVE (NEGATIVE) 08/31/17 15:10 Ur Propoxyphene Screen NEGATIVE (NEGATIVE) 08/31/17 15:10 Ur Barbiturates Screen NEGATIVE (NEGATIVE) 08/31/17 15:10 Ur Tricyclics Screen NEGATIVE (NEGATIVE) 08/31/17 15:10 Ur Phencyclidine Scrn NEGATIVE (NEGATIVE) 08/31/17 15:10 Ur Amphetamine Screen NEGATIVE (NEGATIVE) 08/31/17 15:10 U Methamphetamines Scrn NEGATIVE (NEGATIVE) 08/31/17 15:10 U Benzodiazepines Scrn NEGATIVE (NEGATIVE) 08/31/17 15:10 Urine Cocaine Screen NEGATIVE (NEGATIVE) 08/31/17 15:10 U Cannabinoids Screen NEGATIVE (NEGATIVE) 08/31/17 15:10 - DIAGNOSTIC IMAGING Diagnostic Imaging Results: Final report reviewed Diagnostic Imaging Results Comments: CHEST, ONE VIEW, FRONTAL- 05/27/2012 CLINICAL HISTORY- Chest pain. COMPARISON- None. FINDINGS- Low lung volumes. Mild cardiomegaly. No large pleural effusions or pneumothorax. No acute bony abnormalities. IMPRESSION- 1. LOW LUNG VOLUMES. 2. NO LARGE EFFUSIONS OR PNEUMOTHORAX. 3. NO OVERT CHF. EXAM: [id number] CT/HEADWO ([id number]) EXAM: CT HEAD EXAM DATE: 08/31/2017 02:06 PM. CLINICAL HISTORY: Stroke symptoms. COMPARISON: None. TECHNIQUE: Multiaxial CT images were obtained from the foramen magnum to the vertex. Reformats: Coronal. IV contrast: None. In accordance with CT protocol optimization, one or more of the following dose reduction techniques were utilized for this exam: automated exposure control, adjustment of mA and/or KV based on patient size, or use of iterative reconstructive technique. FINDINGS: Parenchyma: No intraparenchymal hemorrhage. No evidence of mass, midline shift, or CT findings of infarction. Goncalves-white differentiation is distinct. Extraaxial Spaces: Normal for age. No subdural or epidural collections identified. Ventricles: Normal in size and position. Sinuses and Orbits: Imaged paranasal sinuses, orbits, and mastoids show no significant abnormality. Bones: No evidence of fracture or calvarial defect. Other: Right maxillary mucosal thickening. IMPRESSION: No acute intracranial hemorrhage or mass effect. CT ANGIOGRAM NECK EXAM DATE: 08/31/2017 02:27 PM. CLINICAL HISTORY: 52-year-old man with right-sided hemiparesis. COMPARISON: None. TECHNIQUE: Routine axial helical imaging was performed from the skull base through the aortic arch. IV Contrast: Yes. Reconstructions: Routine multiplanar 3D MIP reconstructions. Evaluation of arterial stenosis is based on a NASCET method of measurement. In accordance with CT protocol optimization, one or more of the following dose reduction techniques were utilized for this exam: automated exposure control, adjustment of mA and/or KV based on patient size, or use of iterative reconstructive technique. FINDINGS: Right Carotid: The common carotid, internal carotid, and external carotid arteries are widely patent. No dissection, significant atherosclerotic plaque, or calcification identified. Left Carotid: The common carotid, internal carotid, and external carotid arteries are widely patent. No dissection, significant atherosclerotic plaque, or calcification identified. Right Vertebral: Patent without significant stenosis or dissection. Left Vertebral: Patent without significant stenosis or dissection. Other: Limited evaluation of the neck soft tissues is unremarkable. Lung apices are clear. IMPRESSION: 1. Normal CTA of the neck. No significant vascular stenosis, atherosclerotic disease, or dissection. EXAM: [id number] CT/HEADANG ([id number]) EXAM: CT ANGIOGRAM HEAD. CT SCAN OF THE HEAD WITHOUT AND WITH CONTRAST. EXAM DATE: 08/31/2017 02:27 PM CLINICAL HISTORY: 52-year-old man with right hemiparesis. COMPARISON: Noncontrast head CT done immediately before. TECHNIQUE: 1. CT Scan Head: Using a multidetector scanner, axial images were acquired from the foramen magnum to the skull vertex prior to and following contrast administration. 2. CT Angiogram: Using a multidetector scanner, high-resolution axial images were acquired from the skull base through vertex following rapid infusion of intravenous contrast. Reformats: Multiplanar MIP reformats were reconstructed. Nascet criteria used for stenosis measurement. IV Contrast: 80 cc [id number]. In accordance with CT protocol optimization, one or more of the following dose reduction techniques were utilized for this exam: automated exposure control, adjustment of mA and/or KV based on patient size, or use of iterative reconstructive technique. FINDINGS: NONCONTRAST HEAD: Parenchyma: No evidence of hemorrhage. Goncalves-white differentiation appears intact. Parenchyma demonstrates normal attenuation characteristics. Ventricles and Extra-axial Spaces: Ventricles are symmetric and normal in size for age. No extra- axial hemorrhage or fluid collection. Orbits: Unremarkable. Sinuses: There is mucosal thickening with hyperdense secretions, consistent with inspissated secretions or fungal infection. Hyperostosis of the surrounding barker is consistent with chronic sinusitis. Extracranial Soft Tissues and Bones: Soft tissues are unremarkable. No fractures. CTA HEAD: RIGHT: Visualized Internal Carotid: Patent without significant stenosis or aneurysm. There is mild atherosclerotic plaque along the siphon. Anterior Cerebral: Patent without significant stenosis or aneurysm. Middle Cerebral: Patent without significant stenosis or aneurysm. Posterior Cerebral: Patent without significant stenosis or aneurysm. Posterior Communicating: Not well seen. Visualized Vertebral: Patent without significant stenosis or dissection. LEFT: Visualized Internal Carotid: Patent without significant stenosis or aneurysm. There is mild atherosclerotic plaque along the siphon. Anterior Cerebral: Patent without significant stenosis or aneurysm. Middle Cerebral: Patent without significant stenosis or aneurysm. Posterior Cerebral: Patent without significant stenosis or aneurysm. Posterior Communicating: Small but patent. Visualized Vertebral: Patent without significant stenosis or dissection. CENTRAL: Anterior Communicating: Patent. No aneurysm. Basilar: Patent without significant stenosis, dissection, or aneurysm. POSTCONTRAST HEAD: No abnormal enhancement. IMPRESSION: HEAD: 1. No acute intracranial abnormality. Specifically, no evidence of acute infarct , hemorrhage, or mass lesion. CTA of the head: 1. Normal CTA of the head. No significant vascular stenosis or aneurysm. MRI BRAIN WITHOUT CONTRAST EXAM DATE: 08/31/2017 06:09 PM. CLINICAL HISTORY: Right hemiparesis and facial droop, dense stroke. COMPARISON: CTA head 08/31/2017 TECHNIQUE: Multiplanar, multisequence T1-weighted and fluid-sensitive MR sequences of the brain were performed. Sequences optimized for routine evaluation. Other: None. IV Contrast: None. FINDINGS: Brain Volume: Normal for age. Parenchyma/Dura: There is an 18 x 7 mm area of restricted diffusion and associated T2 hyperintense signal abnormality within the left paramedian nabil (series 505 image 64), consistent with an acute infarct, less than one week old. No evidence of hemorrhagic transformation. No parenchymal microhemorrhages. No mass or hemorrhage. No significant white matter disease. Ventricles/Cisterns: No hydrocephalus. No abnormal extra-axial fluid collection or hemorrhage. Orbits: Symmetric and unremarkable. Sella [place]: The pituitary gland, cavernous sinuses, suprasellar cistern and optic chiasm are unremarkable. IAC: Symmetric and unremarkable. Vasculature: Normal signal flow void is seen in the major arterial structures at the skull base. Sinuses: Mucous retention cysts/polyps within right maxillary sinus with extensive mucosal thickening. The remaining paranasal sinuses are clear. Bones: No focal pathologic appearing marrow signal changes. Other: None. IMPRESSION: 1. An 18 x 7 mm area of restricted diffusion and associated T2 hyperintense signal abnormality within the left paramedian nabil (series 505 image 64), consistent with an acute infarct, less than one week old. No evidence of hemorrhagic transformation. 2. No evidence of intracranial mass effect, midline shift, or hydrocephalus. No significant white matter disease burden. The ordering provider was paged at the time of this dictation. - FOLLOW UP Follow Up: Patient transferred to [facility] at [place] for higher level of care. - TIME SPENT Time Spent in Discharge (Minutes): 55 (FAX TO PCP)
== END 2017-09-01 13:15 | disposition short-term general hospital (02) | DRG 65 ==
LOC: EDUNIT# → ED 12:27 → MS2 16:01
PROVIDERS: ADMIT Internal Medicine; ATTEND Internal Medicine
DX: I63.9 Cerebral infarction, unspecified (principal); G81.91 Hemiplegia, unspecified affecting right dominant side; I50.20 Unspecified systolic (congestive) heart failure; I24.0 Acute coronary thrombosis not resulting in myocardial infarction; E87.1 Hypo-osmolality and hyponatremia; R47.1 Dysarthria and anarthria; R29.810 Facial weakness; R29.717 NIHSS score 17; R13.10 Dysphagia, unspecified; H53.8 Other visual disturbances; E86.0 Dehydration; I11.0 Hypertensive heart disease with heart failure; E11.9 Type 2 diabetes mellitus without complications; E78.5 Hyperlipidemia, unspecified; I25.2 Old myocardial infarction; Z79.02 Long term (current) use of antithrombotics/antiplatelets; Z79.84 Long term (current) use of oral hypoglycemic drugs; Z95.5 Presence of coronary angioplasty implant and graft; Z87.891 Personal history of nicotine dependence
CPT/HCPCS: 36415; 70450; 70496; 70498; 70551; 80053; 80306; 81001; 81003; 83036; 83690; 84484; 85025; 85520; 85610; 87086; 93005; 93306; 96360; 99284; 99285

== ENCOUNTER 2017-09-01 13:20 | Outpatient (CLI) | payer OTHER | END 2017-09-01 13:21 | disposition short-term general hospital (02) | LOC: EMS 13:20 | PROVIDERS: ATTEND Surgery | DX: I63.9 Cerebral infarction, unspecified (principal) | CPT/HCPCS: A0425; A0426 ==

== ENCOUNTER 2024-01-17 08:00 | Outpatient (CLI) | payer MEDICARE | END 2024-01-17 08:01 | disposition home or self-care (01) | LOC: LAB.N 08:00 | PROVIDERS: ATTEND Physician Assistant Medical | DX: R73.9 Hyperglycemia, unspecified (principal) | CPT/HCPCS: 82962 ==